=== PATIENT | male | born 1960 | race Caucasian/White ===

== ENCOUNTER 2017-10-16 17:14 | Emergency (ER) | payer SELFPAY ==
[~2017-10-16] VITALS: Ht 182.9 cm; Wt 97.6 kg
[~2017-10-16 17:14] MED LIST: BACTRIM,SEPT1 TABLET PO; FLEXERIL5 MG PO; KEFLEX500 MG PO; LORTAB 5-325 M1 EACH PO; MOTRIN800 MG PO; OXYCODONE-ACET1 EACH PO
[2017-10-16 17:49] LABS: HEMATOCRIT 47.2 % (38.0-50.0); HEMOGLOBIN 16.6 G/DL (12.5-16.6); MCH 30.4 PG (29.0-34.0); MCHC 35.2 G/DL (30.0-36.0); MCV 86.4 FL (86-99); RBC DIS.WIDTH-CV 13.5 % (11.8-14.6); RBC DIS.WIDTH-SD 42.6 % (39-53); RED BLOOD COUNT 5.46 M/uL (4.00-5.50); WHITE BLOOD COUNT 9.8 K/uL (4.1-10.2)
[2017-10-16 18:05] LABS: ALBUMIN 4.4 g/dL (3.2-4.8); CHLORIDE 107 mEq/L (99-109); POTASSIUM 4.4 mEq/L (3.7-5.4); SODIUM 139 mEq/L (136-147)
[2017-10-16 18:07] LABS: GLUCOSE 118 mg/dL (70-99)
[2017-10-16 18:09] LABS: TOTAL BILIRUBIN 1.4 mg/dL (0.0-1.0)
[2017-10-16 18:11] LABS: ALKALINE PHOSPHATASE 99 IU/L (3-129); CREATININE 1.2 mg/dL (0.6-1.3); GFR ESTIMATE (CALCULATED) > 59 mL/min/ (58.99-99999)
[2017-10-16 18:13] LABS: AST (GOT) 15 IU/L (2-34); UREA NITROGEN (BUN) 10 mg/dL (9-23)
[2017-10-16 18:14] LABS: ALT (GPT) 11 IU/L (3-49)
[2017-10-16 18:15] LABS: CREATINE KINASE 70 IU/L (1-294); LIPASE 17 U/L (1.0-51.0)
[2017-10-16 18:33] LABS: PLAT.SUFFICIENCY ADEQUATE
[2017-10-16 18:37] LABS: PLATELET COUNT 344 K/uL (156-360)
[2017-10-16 20:27] LABS: APPEARANCE CLEAR ((CLEAR)); BILIRUBIN NEGATIVE; BLOOD NEGATIVE; COLOR YELLOW ((YELLOW)); GLUCOSE (STRIP) NEGATIVE; KETONES 5; LEUKOCYTES NEGATIVE; NITRITE NEGATIVE; PROTEIN (STRIP) NEGATIVE; SPECIFIC GRAVITY 1.051 (1.000-1.030); UCUL ADDED? NO
[2017-10-16] MEDS ORDERED: LISINOPRIL-HCT1 EACH PO (20:54)
[2017-10-16] MEDS ORDERED: ZOFRAN4 MG PO (20:54)
[2017-10-16] MEDS ORDERED: PERCOCET 5/31 TABLET PO (20:54)
[2017-10-16 21:02] LABS: TROP-I INTERPRETATION NEGATIVE; TROPONIN-I < 0.01 ng/mL (0.0-0.30)
[2017-10-16 22:29] VITALS: BP 173/97
== END 2017-10-16 22:31 | disposition left against medical advice (07) ==
LOC: EME 17:14
PROVIDERS: Physician Assistant
DX: I10 Essential (primary) hypertension (principal); R11.10 Vomiting, unspecified; G89.29 Other chronic pain; M54.5 Low back pain; Z91.14 Patient's other noncompliance with medication regimen; R53.1 Weakness; Z86.73 Personal history of transient ischemic attack (TIA), and cerebral infarction without residual deficits; F17.200 Nicotine dependence, unspecified, uncomplicated
CPT/HCPCS: 74177; 80053; 81003; 82550; 83690; 84484; 85027; 93005; 99281; 99285; J2405; J2765; J3010; J7030